=== PATIENT | female | born 1945 | race Caucasian/White ===

== ENCOUNTER 2020-11-22 12:14 | Inpatient (IN) ==
[2020-11-22] MEDS ORDERED: SODIUM CHLORIDE 0.9% 500 ML IV STA (12:46)
[2020-11-22] MEDS ORDERED: NITROGLYCERIN 2% OINT 1 INCH/GM PACK TOP STA (12:46)
[2020-11-22] MEDS ORDERED: DILTIAZEM 100 MG VIAL.ADD IV ONE (12:49)
[2020-11-22] MEDS ORDERED: DILTIAZEM 50 MG/10 ML VIAL IV ONE (12:49)
[2020-11-22 12:59] LABS: Basophils % 0.1 % (0.0-0.8); Eosinophils % 0.3 % (0.00-10.9); Hematocrit 46.5 VOL% (35.7-47.0); Hemoglobin 15.1 GM/DL (12.0-16.0); Immature Granulocytes % 0.6 %; Immature Granulocytes Absolute 0.06 #; Lymphocytes # 1.5 10*3/uL (1.4-4.0); Lymphocytes % 14.5 % (21.3-54.2); Mean Corpuscular HGB Conc 32.5 GM/DL (32-36); Mean Corpuscular Volume 93.8 FL (87-102); Mean Platelet Volume 12.1 FL (9.6-12.0); Monocytes % 6.7 % (1.7-12.7); Neutrophils % 77.8 % (38.7-73.9); Platelet Count 282 T/CUMM (130-400); Red Blood Count 4.96 MC/CUMM (3.8-5.5); Red Cell Distribution Width 13.4 % (9.3-17.3); White Blood Count 10.5 T/CUMM (4-12)
[2020-11-22] MEDS: DILTIAZEM INJ 100 MG in SODIUM CHLORIDE 0.9% 100 ML IV SCH ×2 (13:10→23:01)
[2020-11-22 13:25] LABS: Albumin 2.7 G/DL (3.4-5.0); Bilirubin,Total 1.2 MG/DL (0.20-1.00); Calcium 8.2 MG/DL (8.5-10.1); Osmolality,Calculated 285.4 MOS/KG (273-304); Potassium 4.4 MMOL/L (3.5-5.1); Total Protein 6.9 G/DL (6.4-8.2)
[2020-11-22] MEDS ORDERED: DILTIAZEM 50 MG/10 ML VIAL IV STA ×2 (13:55→13:56)
[2020-11-22] MEDS ORDERED: METOPROLOL SUCCINATE XL 25 MG TABLET PO STA (14:55)
[2020-11-22] MEDS ORDERED: ONDANSETRON 4 MG/2 ML VIAL IV PRN (15:11)
[2020-11-22] MEDS ORDERED: DEXTROSE 50% 25 GM/50 ML VIAL IV PRN ×2 (15:11)
[2020-11-22] MEDS ORDERED: GLUCAGON 1 MG VIAL IM PRN ×2 (15:11)
[2020-11-22] MEDS ORDERED: ASCORBIC ACID 500 MG TABLET PO SCH (15:30)
[2020-11-22] MEDS: INSULIN LISPRO 100 UNIT/ML SUBCUT SCH ×2 (17:04→20:40)
[2020-11-22] MEDS: PANTOPRAZOLE 40 MG TABLET PO SCH (17:26)
[2020-11-22] MEDS: ZINC GLUCONATE 50 MG TABLET PO SCH (17:26)
[2020-11-22] MEDS: cefTRIAXone 1,000 MG in SODIUM CHLORIDE 0.9% 100 ML IV SCH (17:27)
[2020-11-22 17:47] LABS: Ferritin 445.7 ng/ml (8-252)
[2020-11-22] MEDS: DOXYCYCLINE HYCLATE INJ 100 MG in SODIUM CHLORIDE 0.9% 100 ML IV SCH (20:21)
[2020-11-22] MEDS: APIXABAN 5 MG TABLET PO SCH (20:22)
[2020-11-22] MEDS: ASCORBIC ACID 500 MG TABLET PO SCH (20:22)
[2020-11-22] MEDS: MIRTAZAPINE 15 MG TABLET PO SCH (20:23)
[2020-11-22] MEDS: CITALOPRAM 20 MG TABLET PO SCH (20:23)
[2020-11-22] MEDS: GABAPENTIN 300 MG CAPSULE PO SCH (20:23)
[2020-11-22] MEDS ORDERED: CALCIUM CARBONATE CHEW 500 MG TABLET PO SCH (21:00)
[2020-11-22] MEDS: REMDESIVIR 100 MG in SODIUM CHLORIDE 0.9% 100 ML IV SCH (21:30)
[2020-11-23] MEDS: DOXYCYCLINE HYCLATE INJ 100 MG in SODIUM CHLORIDE 0.9% 100 ML IV SCH ×2 (05:38→17:33)
[2020-11-23 05:59] LABS: Basophils % 0.1 % (0.0-0.8); Eosinophils # 0.2 10*3/uL (0.0-0.87); Hematocrit 42.5 VOL% (35.7-47.0); Hemoglobin 13.9 GM/DL (12.0-16.0); Immature Granulocytes % 0.5 %; Immature Granulocytes Absolute 0.05 #; Lymphocytes # 1.6 10*3/uL (1.4-4.0); Lymphocytes % 16.9 % (21.3-54.2); Mean Corpuscular HGB Conc 32.7 GM/DL (32-36); Mean Corpuscular Volume 93.8 FL (87-102); Mean Platelet Volume 11.9 FL (9.6-12.0); Monocytes % 7.8 % (1.7-12.7); Neutrophils % 72.7 % (38.7-73.9); Platelet Count 243 T/CUMM (130-400); Red Blood Count 4.53 MC/CUMM (3.8-5.5); Red Cell Distribution Width 13.7 % (9.3-17.3); White Blood Count 9.4 T/CUMM (4-12)
[2020-11-23 06:30] LABS: Ferritin 504.3 ng/ml (8-252)
[2020-11-23 06:42] LABS: Calcium 8.1 MG/DL (8.5-10.1); Osmolality,Calculated 290.8 MOS/KG (273-304); Thyroid Stimulating Hormone 1.72 uIU/ml (0.358-3.74)
[2020-11-23] MEDS ORDERED: POTASSIUM CHLORIDE 20 MEQ TABLET PO ONE (07:42)
[2020-11-23] MEDS: INSULIN LISPRO 100 UNIT/ML SUBCUT SCH ×4 (08:16→22:16)
[2020-11-23] MEDS: DEXAMETHASONE 4 MG/1 ML VIAL IV SCH (08:17)
[2020-11-23] MEDS: GABAPENTIN 300 MG CAPSULE PO SCH ×3 (08:18→22:14)
[2020-11-23] MEDS: ZINC GLUCONATE 50 MG TABLET PO SCH (08:18)
[2020-11-23] MEDS: CALCIUM (CARBONATE) 500 MG TABLET PO SCH (08:18)
[2020-11-23] MEDS: APIXABAN 5 MG TABLET PO SCH ×2 (08:18→22:13)
[2020-11-23] MEDS: ASCORBIC ACID 500 MG TABLET PO SCH ×2 (08:19→22:13)
[2020-11-23] MEDS: CHOLECALCIFEROL 1,000 UNIT TABLET PO SCH (08:19)
[2020-11-23] MEDS: PANTOPRAZOLE 40 MG TABLET PO SCH (08:19)
[2020-11-23] MEDS: INSULIN GLARGINE 100 UNIT/ML SUBCUT SCH (08:23)
[2020-11-23] MEDS ORDERED: NON-FORMULARY MEDICATION (Insulin Glargine [Basaglar Kwikpen U-100 Insulin] 100 unit/mL (3 SUBCUT SCH (09:00)
[2020-11-23] MEDS ORDERED: METOPROLOL SUCCINATE XL 25 MG TABLET PO ONE (09:16)
[2020-11-23] MEDS: REMDESIVIR 100 MG in SODIUM CHLORIDE 0.9% 100 ML IV SCH (10:37)
[2020-11-23] MEDS: DILTIAZEM INJ 100 MG in SODIUM CHLORIDE 0.9% 100 ML IV SCH ×2 (13:00→20:22)
[2020-11-23] MEDS: DILTIAZEM 30 MG TABLET PO SCH ×2 (16:34→22:12)
[2020-11-23] MEDS: cefTRIAXone 1,000 MG in SODIUM CHLORIDE 0.9% 100 ML IV SCH (16:34)
[2020-11-23] MEDS ORDERED: SODIUM CHLORIDE 0.45% 1,000 ML IV SCH (17:00)
[2020-11-23] MEDS ORDERED: METOPROLOL TARTRATE 50 MG TABLET PO ONE (18:34)
[2020-11-23] MEDS ORDERED: DIGOXIN 0.5 MG/2 ML AMP IV ONE (18:35)
[2020-11-23 20:58] LABS: Osmolality,Calculated 292.1 MOS/KG (273-304); Potassium 3.6 MMOL/L (3.5-5.1)
[2020-11-23] MEDS: MIRTAZAPINE 15 MG TABLET PO SCH (22:12)
[2020-11-23] MEDS: METOPROLOL SUCCINATE XL 50 MG TABLET PO SCH (22:14)
[2020-11-23] MEDS: CITALOPRAM 20 MG TABLET PO SCH (22:14)
[2020-11-24] MEDS: POTASSIUM CHLORIDE 20 MEQ TABLET PO PRN (00:48)
[2020-11-24 05:50] LABS: Basophils % 0.1 % (0.0-0.8); Hematocrit 40.9 VOL% (35.7-47.0); Hemoglobin 13.2 GM/DL (12.0-16.0); Immature Granulocytes % 0.8 %; Immature Granulocytes Absolute 0.09 #; Mean Corpuscular HGB Conc 32.3 GM/DL (32-36); Mean Corpuscular Volume 95.1 FL (87-102); Mean Platelet Volume 12.3 FL (9.6-12.0); Monocytes % 4.8 % (1.7-12.7); Neutrophils % 85.3 % (38.7-73.9); Platelet Count 268 T/CUMM (130-400); Red Cell Distribution Width 13.7 % (9.3-17.3); White Blood Count 11.4 T/CUMM (4-12)
[2020-11-24 06:16] LABS: Calcium 8.2 MG/DL (8.5-10.1); Osmolality,Calculated 294.6 MOS/KG (273-304); Potassium 4.1 MMOL/L (3.5-5.1)
[2020-11-24 06:25] LABS: Risk Ratio 2.53; VLDL Cholesterol 12.4 MG/DL
[2020-11-24] MEDS: DOXYCYCLINE HYCLATE INJ 100 MG in SODIUM CHLORIDE 0.9% 100 ML IV SCH (06:37)
[2020-11-24] MEDS ORDERED: CLORAZEPATE 3.75 MG TABLET PO PRN (08:46)
[2020-11-24] MEDS ORDERED: DIGOXIN 0.5 MG/2 ML AMP IV SCH (09:00)
[2020-11-24] MEDS: DILTIAZEM 30 MG TABLET PO SCH (09:15)
[2020-11-24] MEDS: ZINC GLUCONATE 50 MG TABLET PO SCH (09:16)
[2020-11-24] MEDS: ASCORBIC ACID 500 MG TABLET PO SCH ×2 (09:16→21:48)
[2020-11-24] MEDS: APIXABAN 5 MG TABLET PO SCH ×2 (09:16→21:40)
[2020-11-24] MEDS: PANTOPRAZOLE 40 MG TABLET PO SCH (09:16)
[2020-11-24] MEDS: CHOLECALCIFEROL 1,000 UNIT TABLET PO SCH (09:16)
[2020-11-24] MEDS: CALCIUM (CARBONATE) 500 MG TABLET PO SCH (09:16)
[2020-11-24] MEDS: INSULIN LISPRO 100 UNIT/ML SUBCUT SCH ×4 (09:17→21:47)
[2020-11-24] MEDS: GABAPENTIN 300 MG CAPSULE PO SCH ×3 (09:17→21:47)
[2020-11-24] MEDS: DEXAMETHASONE 4 MG/1 ML VIAL IV SCH (09:17)
[2020-11-24] MEDS: SODIUM CHLORIDE 0.45% 1,000 ML IV SCH ×2 (09:19→17:04)
[2020-11-24] MEDS: REMDESIVIR 100 MG in SODIUM CHLORIDE 0.9% 100 ML IV SCH (09:19)
[2020-11-24] MEDS: METOPROLOL SUCCINATE XL 50 MG TABLET PO SCH ×2 (09:23→21:48)
[2020-11-24] MEDS: ASPIRIN EC 81 MG TABLET PO SCH (09:29)
[2020-11-24] MEDS: INSULIN GLARGINE 100 UNIT/ML SUBCUT SCH (09:31)
[2020-11-24] MEDS ORDERED: DILTIAZEM 30 MG TABLET PO ONE (09:55)
[2020-11-24] MEDS: DILTIAZEM 60 MG TABLET PO SCH ×3 (13:41→21:40)
[2020-11-24] MEDS: cefTRIAXone 1,000 MG in SODIUM CHLORIDE 0.9% 100 ML IV SCH (16:02)
[2020-11-24] MEDS: CITALOPRAM 20 MG TABLET PO SCH (21:40)
[2020-11-24] MEDS: DOXYCYCLINE HYCLATE 100 MG CAPSULE PO SCH (21:48)
[2020-11-24] MEDS: MIRTAZAPINE 15 MG TABLET PO SCH (21:48)
[2020-11-25] MEDS: SODIUM CHLORIDE 0.45% 1,000 ML IV SCH ×2 (02:34→06:07)
[2020-11-25] MEDS ORDERED: FUROSEMIDE 40 MG/4 ML VIAL IV ONE (07:40)
[2020-11-25] MEDS: DEXAMETHASONE 4 MG/1 ML VIAL IV SCH (09:14)
[2020-11-25] MEDS: cefTRIAXone 1,000 MG in SODIUM CHLORIDE 0.9% 100 ML IV SCH (09:14)
[2020-11-25] MEDS: DILTIAZEM 30 MG TABLET PO SCH ×3 (09:15→20:52)
[2020-11-25] MEDS: ASCORBIC ACID 500 MG TABLET PO SCH ×2 (09:15→20:52)
[2020-11-25] MEDS: INSULIN GLARGINE 100 UNIT/ML SUBCUT SCH (09:15)
[2020-11-25] MEDS: ASPIRIN EC 81 MG TABLET PO SCH (09:15)
[2020-11-25] MEDS: DOXYCYCLINE HYCLATE 100 MG CAPSULE PO SCH ×2 (09:15→20:52)
[2020-11-25] MEDS: ZINC GLUCONATE 50 MG TABLET PO SCH (09:15)
[2020-11-25] MEDS: APIXABAN 5 MG TABLET PO SCH ×2 (09:15→20:52)
[2020-11-25] MEDS: PANTOPRAZOLE 40 MG TABLET PO SCH (09:15)
[2020-11-25] MEDS: METOPROLOL SUCCINATE XL 50 MG TABLET PO SCH ×2 (09:16→20:52)
[2020-11-25] MEDS: CALCIUM (CARBONATE) 500 MG TABLET PO SCH (09:16)
[2020-11-25] MEDS: GABAPENTIN 300 MG CAPSULE PO SCH ×3 (09:16→20:52)
[2020-11-25] MEDS: CHOLECALCIFEROL 1,000 UNIT TABLET PO SCH (09:16)
[2020-11-25] MEDS: INSULIN LISPRO 100 UNIT/ML SUBCUT SCH ×4 (09:30→20:52)
[2020-11-25] MEDS: REMDESIVIR 100 MG in SODIUM CHLORIDE 0.9% 100 ML IV SCH (10:05)
[2020-11-25] MEDS: CITALOPRAM 20 MG TABLET PO SCH (20:52)
[2020-11-25] MEDS: MIRTAZAPINE 15 MG TABLET PO SCH (20:52)
[2020-11-26] MEDS: ASCORBIC ACID 500 MG TABLET PO SCH ×2 (09:43→21:58)
[2020-11-26] MEDS: ZINC GLUCONATE 50 MG TABLET PO SCH (09:43)
[2020-11-26] MEDS: DOXYCYCLINE HYCLATE 100 MG CAPSULE PO SCH ×2 (09:44→21:58)
[2020-11-26] MEDS: CHOLECALCIFEROL 1,000 UNIT TABLET PO SCH (09:44)
[2020-11-26] MEDS: METOPROLOL SUCCINATE XL 50 MG TABLET PO SCH (09:44)
[2020-11-26] MEDS: ASPIRIN EC 81 MG TABLET PO SCH (09:44)
[2020-11-26] MEDS: GABAPENTIN 300 MG CAPSULE PO SCH ×3 (09:44→21:58)
[2020-11-26] MEDS: DILTIAZEM 30 MG TABLET PO SCH (09:44)
[2020-11-26] MEDS: PANTOPRAZOLE 40 MG TABLET PO SCH (09:53)
[2020-11-26] MEDS: APIXABAN 5 MG TABLET PO SCH ×2 (09:53→21:59)
[2020-11-26] MEDS: CALCIUM (CARBONATE) 500 MG TABLET PO SCH (09:53)
[2020-11-26] MEDS: INSULIN LISPRO 100 UNIT/ML SUBCUT SCH ×4 (09:53→21:59)
[2020-11-26] MEDS: INSULIN GLARGINE 100 UNIT/ML SUBCUT SCH (09:54)
[2020-11-26] MEDS: cefTRIAXone 1,000 MG in SODIUM CHLORIDE 0.9% 100 ML IV SCH (10:12)
[2020-11-26] MEDS: DEXAMETHASONE 4 MG/1 ML VIAL IV SCH (10:13)
[2020-11-26 10:59] LABS: Calcium 8.2 MG/DL (8.5-10.1); Osmolality,Calculated 292.4 MOS/KG (273-304); Potassium 3.2 MMOL/L (3.5-5.1)
[2020-11-26] MEDS: REMDESIVIR 100 MG in SODIUM CHLORIDE 0.9% 100 ML IV SCH (11:49)
[2020-11-26] MEDS ORDERED: FUROSEMIDE 40 MG/4 ML VIAL IV ONE (14:20)
[2020-11-26] MEDS: CITALOPRAM 20 MG TABLET PO SCH (21:58)
[2020-11-26] MEDS: MIRTAZAPINE 15 MG TABLET PO SCH (21:58)
[2020-11-26] MEDS: METOPROLOL SUCCINATE XL 25 MG TABLET PO SCH (21:58)
[2020-11-27 05:49] LABS: Basophils % 0.2 % (0.0-0.8); Hematocrit 45.3 VOL% (35.7-47.0); Hemoglobin 14.9 GM/DL (12.0-16.0); Immature Granulocytes % 0.9 %; Immature Granulocytes Absolute 0.12 #; Lymphocytes # 1.9 10*3/uL (1.4-4.0); Lymphocytes % 14.4 % (21.3-54.2); Mean Corpuscular HGB Conc 32.9 GM/DL (32-36); Mean Corpuscular Volume 94.4 FL (87-102); Mean Platelet Volume 12.5 FL (9.6-12.0); Neutrophils % 75.5 % (38.7-73.9); Platelet Count 356 T/CUMM (130-400); Red Cell Distribution Width 13.7 % (9.3-17.3); White Blood Count 13.2 T/CUMM (4-12)
[2020-11-27 06:09] LABS: Platelet Estimate Adequate
[2020-11-27 06:13] LABS: Calcium 8.2 MG/DL (8.5-10.1); Osmolality,Calculated 296.8 MOS/KG (273-304); Potassium 3.4 MMOL/L (3.5-5.1)
[2020-11-27] MEDS: INSULIN LISPRO 100 UNIT/ML SUBCUT SCH ×4 (07:22→22:24)
[2020-11-27] MEDS: CALCIUM (CARBONATE) 500 MG TABLET PO SCH (09:45)
[2020-11-27] MEDS: LOSARTAN 25 MG TABLET PO SCH (09:45)
[2020-11-27] MEDS: ZINC GLUCONATE 50 MG TABLET PO SCH (09:45)
[2020-11-27] MEDS: ASCORBIC ACID 500 MG TABLET PO SCH ×2 (09:45→21:15)
[2020-11-27] MEDS: CHOLECALCIFEROL 1,000 UNIT TABLET PO SCH (09:45)
[2020-11-27] MEDS: DOXYCYCLINE HYCLATE 100 MG CAPSULE PO SCH ×2 (09:45→21:15)
[2020-11-27] MEDS: ASPIRIN EC 81 MG TABLET PO SCH (09:45)
[2020-11-27] MEDS: METOPROLOL SUCCINATE XL 25 MG TABLET PO SCH ×2 (09:45→21:15)
[2020-11-27] MEDS: GABAPENTIN 300 MG CAPSULE PO SCH ×3 (09:45→21:15)
[2020-11-27] MEDS: APIXABAN 5 MG TABLET PO SCH ×2 (09:46→21:15)
[2020-11-27] MEDS: DEXAMETHASONE 4 MG/1 ML VIAL IV SCH (09:46)
[2020-11-27] MEDS: cefTRIAXone 1,000 MG in SODIUM CHLORIDE 0.9% 100 ML IV SCH (09:46)
[2020-11-27] MEDS: PANTOPRAZOLE 40 MG TABLET PO SCH (09:46)
[2020-11-27] MEDS: INSULIN GLARGINE 100 UNIT/ML SUBCUT SCH (09:46)
[2020-11-27] MEDS: CITALOPRAM 20 MG TABLET PO SCH (21:15)
[2020-11-27] MEDS: MIRTAZAPINE 15 MG TABLET PO SCH (21:15)
[2020-11-28] MEDS ORDERED: POTASSIUM CHLORIDE 20 MEQ TABLET PO ONE (09:00)
[2020-11-28] MEDS: cefTRIAXone 1,000 MG in SODIUM CHLORIDE 0.9% 100 ML IV SCH (09:01)
[2020-11-28] MEDS: CALCIUM (CARBONATE) 500 MG TABLET PO SCH (09:02)
[2020-11-28] MEDS: ASCORBIC ACID 500 MG TABLET PO SCH ×2 (09:03→20:46)
[2020-11-28] MEDS: APIXABAN 5 MG TABLET PO SCH ×2 (09:03→20:40)
[2020-11-28] MEDS: LOSARTAN 25 MG TABLET PO SCH (09:03)
[2020-11-28] MEDS: ZINC GLUCONATE 50 MG TABLET PO SCH (09:03)
[2020-11-28] MEDS: METOPROLOL SUCCINATE XL 25 MG TABLET PO SCH ×2 (09:04→20:40)
[2020-11-28] MEDS: GABAPENTIN 300 MG CAPSULE PO SCH ×3 (09:04→20:40)
[2020-11-28] MEDS: LORATADINE 10 MG TABLET PO PRN (09:04)
[2020-11-28] MEDS: CHOLECALCIFEROL 1,000 UNIT TABLET PO SCH (09:04)
[2020-11-28] MEDS: ASPIRIN EC 81 MG TABLET PO SCH (09:04)
[2020-11-28] MEDS: PANTOPRAZOLE 40 MG TABLET PO SCH (09:04)
[2020-11-28] MEDS: DOXYCYCLINE HYCLATE 100 MG CAPSULE PO SCH ×2 (09:04→20:46)
[2020-11-28] MEDS: DEXAMETHASONE 4 MG/1 ML VIAL IV SCH (09:05)
[2020-11-28] MEDS: INSULIN GLARGINE 100 UNIT/ML SUBCUT SCH (09:05)
[2020-11-28] MEDS: INSULIN LISPRO 100 UNIT/ML SUBCUT SCH ×4 (09:06→21:23)
[2020-11-28] MEDS ORDERED: DIGOXIN 0.5 MG/2 ML AMP IV ONE (17:41)
[2020-11-28] MEDS ORDERED: AMIODARONE INJ 150 MG in DEXTROSE 5% 100 ML IV ONE ×2 (18:09→18:30)
[2020-11-28] MEDS: MIRTAZAPINE 15 MG TABLET PO SCH (20:40)
[2020-11-28] MEDS ORDERED: AMIODARONE 200 MG TABLET PO SCH (21:00)
[2020-11-29 04:27] LABS: Basophils % 0.2 % (0.0-0.8); Hematocrit 44.8 VOL% (35.7-47.0); Hemoglobin 14.6 GM/DL (12.0-16.0); Immature Granulocytes % 0.8 %; Immature Granulocytes Absolute 0.11 #; Lymphocytes # 1.7 10*3/uL (1.4-4.0); Lymphocytes % 11.4 % (21.3-54.2); Mean Corpuscular HGB Conc 32.6 GM/DL (32-36); Mean Corpuscular Volume 96.3 FL (87-102); Mean Platelet Volume 12.4 FL (9.6-12.0); Monocytes % 7.7 % (1.7-12.7); Neutrophils % 79.9 % (38.7-73.9); Platelet Count 300 T/CUMM (130-400); Red Blood Count 4.65 MC/CUMM (3.8-5.5); Red Cell Distribution Width 13.9 % (9.3-17.3); White Blood Count 14.7 T/CUMM (4-12)
[2020-11-29 05:12] LABS: Blood Urea Nitrogen 31 MG/DL (7-18); Calcium 7.9 MG/DL (8.5-10.1); Carbon Dioxide 21 MMOL/L (21-32); Estimated Glom Filtration Rate 78 ML/MIN; Ferritin 326.3 ng/mL (8-252); Glucose 98 MG/DL (74-106); Osmolality,Calculated 289.1 MOS/KG (273-304); Potassium 3.9 MMOL/L (3.5-5.1); Sodium 142 MMOL/L (136-145)
[2020-11-29] MEDS: INSULIN LISPRO 100 UNIT/ML SUBCUT SCH ×4 (10:09→21:20)
[2020-11-29] MEDS: DEXAMETHASONE 4 MG/1 ML VIAL IV SCH (10:09)
[2020-11-29] MEDS: ASCORBIC ACID 500 MG TABLET PO SCH ×2 (10:10→21:20)
[2020-11-29] MEDS: AMIODARONE 200 MG TABLET PO SCH (10:10)
[2020-11-29] MEDS: LORATADINE 10 MG TABLET PO PRN (10:10)
[2020-11-29] MEDS: PANTOPRAZOLE 40 MG TABLET PO SCH (10:10)
[2020-11-29] MEDS: CALCIUM (CARBONATE) 500 MG TABLET PO SCH (10:10)
[2020-11-29] MEDS: ZINC GLUCONATE 50 MG TABLET PO SCH (10:10)
[2020-11-29] MEDS: ASPIRIN EC 81 MG TABLET PO SCH (10:10)
[2020-11-29] MEDS: DOXYCYCLINE HYCLATE 100 MG CAPSULE PO SCH ×2 (10:11→21:20)
[2020-11-29] MEDS: CHOLECALCIFEROL 1,000 UNIT TABLET PO SCH (10:11)
[2020-11-29] MEDS: METOPROLOL SUCCINATE XL 25 MG TABLET PO SCH ×2 (10:54→21:20)
[2020-11-29] MEDS: INSULIN GLARGINE 100 UNIT/ML SUBCUT SCH (11:10)
[2020-11-29] MEDS: APIXABAN 5 MG TABLET PO SCH ×2 (11:10→21:20)
[2020-11-29] MEDS: GABAPENTIN 300 MG CAPSULE PO SCH ×3 (11:10→21:20)
[2020-11-29] MEDS ORDERED: CALCIUM CARBONATE CHEW 500 MG TABLET PO PRN (12:03)
[2020-11-29] MEDS: MIRTAZAPINE 15 MG TABLET PO SCH (21:20)
[2020-11-30 05:41] LABS: Basophils % 0.2 % (0.0-0.8); Eosinophils # 0.1 10*3/uL (0.0-0.87); Eosinophils % 0.7 % (0.00-10.9); Hematocrit 48.9 VOL% (35.7-47.0); Hemoglobin 15.6 GM/DL (12.0-16.0); Immature Granulocytes % 0.6 %; Immature Granulocytes Absolute 0.09 #; Lymphocytes # 3.1 10*3/uL (1.4-4.0); Lymphocytes % 19.4 % (21.3-54.2); Mean Corpuscular HGB Conc 31.9 GM/DL (32-36); Mean Corpuscular Volume 97.6 FL (87-102); Mean Platelet Volume 12.2 FL (9.6-12.0); Monocytes % 9.4 % (1.7-12.7); Neutrophils % 69.7 % (38.7-73.9); Platelet Count 298 T/CUMM (130-400); Red Blood Count 5.01 MC/CUMM (3.8-5.5); Red Cell Distribution Width 14.1 % (9.3-17.3); White Blood Count 16.1 T/CUMM (4-12)
[2020-11-30 06:17] LABS: Blood Urea Nitrogen 28 MG/DL (7-18); Calcium 8.1 MG/DL (8.5-10.1); Carbon Dioxide 22 MMOL/L (21-32); Estimated Glom Filtration Rate 67 ML/MIN; Ferritin 367.3 ng/mL (8-252); Glucose 80 MG/DL (74-106); Osmolality,Calculated 287.1 MOS/KG (273-304); Potassium 3.4 MMOL/L (3.5-5.1); Sodium 142 MMOL/L (136-145)
[2020-11-30] MEDS: INSULIN LISPRO 100 UNIT/ML SUBCUT SCH ×4 (08:37→22:50)
[2020-11-30] MEDS: POTASSIUM CHLORIDE 20 MEQ TABLET PO PRN ×3 (10:46→15:10)
[2020-11-30] MEDS: ZINC GLUCONATE 50 MG TABLET PO SCH (10:46)
[2020-11-30] MEDS: CHOLECALCIFEROL 1,000 UNIT TABLET PO SCH (10:46)
[2020-11-30] MEDS: PANTOPRAZOLE 40 MG TABLET PO SCH (10:47)
[2020-11-30] MEDS: APIXABAN 5 MG TABLET PO SCH ×2 (10:47→21:07)
[2020-11-30] MEDS: METOPROLOL SUCCINATE XL 25 MG TABLET PO SCH ×2 (10:47→21:07)
[2020-11-30] MEDS: GABAPENTIN 300 MG CAPSULE PO SCH ×3 (10:47→21:07)
[2020-11-30] MEDS: DOXYCYCLINE HYCLATE 100 MG CAPSULE PO SCH ×2 (10:47→21:08)
[2020-11-30] MEDS: CALCIUM (CARBONATE) 500 MG TABLET PO SCH (10:47)
[2020-11-30] MEDS: ASCORBIC ACID 500 MG TABLET PO SCH ×2 (10:48→21:07)
[2020-11-30] MEDS: INSULIN GLARGINE 100 UNIT/ML SUBCUT SCH (10:49)
[2020-11-30] MEDS: ASPIRIN EC 81 MG TABLET PO SCH (10:49)
[2020-11-30] MEDS: AMIODARONE 200 MG TABLET PO SCH (10:49)
[2020-11-30] MEDS: DEXAMETHASONE 4 MG/1 ML VIAL IV SCH (11:00)
[2020-11-30] MEDS: MIRTAZAPINE 15 MG TABLET PO SCH (21:08)
[2020-12-01 05:34] LABS: Basophils % 0.1 % (0.0-0.8); Eosinophils % 0.2 % (0.00-10.9); Hemoglobin 14.5 GM/DL (12.0-16.0); Immature Granulocytes % 0.5 %; Immature Granulocytes Absolute 0.07 #; Lymphocytes # 1.8 10*3/uL (1.4-4.0); Lymphocytes % 13.8 % (21.3-54.2); Mean Corpuscular HGB Conc 32.2 GM/DL (32-36); Mean Corpuscular Volume 97.2 FL (87-102); Monocytes % 5.8 % (1.7-12.7); Neutrophils % 79.6 % (38.7-73.9); Platelet Count 270 T/CUMM (130-400); Red Blood Count 4.63 MC/CUMM (3.8-5.5); Red Cell Distribution Width 14.3 % (9.3-17.3); White Blood Count 13.3 T/CUMM (4-12)
[2020-12-01 06:10] LABS: Osmolality,Calculated 286.5 MOS/KG (273-304)
[2020-12-01 06:13] LABS: Potassium 6.7 MMOL/L (3.5-5.1)
[2020-12-01] MEDS ORDERED: SODIUM POLYSTYRENE SULFATE 15 GM/60 ML BOTTLE PO STA (06:17)
[2020-12-01] MEDS ORDERED: DEXTROSE 50% 25 GM/50 ML VIAL IV ONE (06:50)
[2020-12-01] MEDS ORDERED: INSULIN REGULAR 100 UNIT/ML IV ONE (06:50)
[2020-12-01] MEDS ORDERED: CALCIUM GLUCONATE 1,000 MG in SODIUM CHLORIDE 0.9% 100 ML IV ONE (06:51)
[2020-12-01] MEDS ORDERED: SODIUM BICARBONATE 50 MEQ/50 ML VIAL IV ONE (06:53)
[2020-12-01] MEDS: ASPIRIN EC 81 MG TABLET PO SCH (08:02)
[2020-12-01] MEDS: ZINC GLUCONATE 50 MG TABLET PO SCH (08:02)
[2020-12-01] MEDS: CHOLECALCIFEROL 1,000 UNIT TABLET PO SCH (08:02)
[2020-12-01] MEDS: PANTOPRAZOLE 40 MG TABLET PO SCH (08:02)
[2020-12-01] MEDS: ASCORBIC ACID 500 MG TABLET PO SCH ×2 (08:02→21:05)
[2020-12-01] MEDS: DOXYCYCLINE HYCLATE 100 MG CAPSULE PO SCH ×2 (08:02→21:05)
[2020-12-01] MEDS: AMIODARONE 200 MG TABLET PO SCH (08:03)
[2020-12-01] MEDS: METOPROLOL SUCCINATE XL 25 MG TABLET PO SCH ×2 (08:03→20:31)
[2020-12-01] MEDS: GABAPENTIN 300 MG CAPSULE PO SCH ×3 (08:03→21:06)
[2020-12-01] MEDS: APIXABAN 5 MG TABLET PO SCH ×2 (08:03→21:06)
[2020-12-01] MEDS: INSULIN GLARGINE 100 UNIT/ML SUBCUT SCH (08:04)
[2020-12-01] MEDS: CALCIUM (CARBONATE) 500 MG TABLET PO SCH (09:36)
[2020-12-01] MEDS: DEXAMETHASONE 4 MG TABLET PO SCH (10:41)
[2020-12-01] MEDS: INSULIN LISPRO 100 UNIT/ML SUBCUT SCH ×4 (12:27→21:05)
[2020-12-01 12:42] LABS: Potassium 3.5 MMOL/L (3.5-5.1)
[2020-12-01] MEDS: MIRTAZAPINE 15 MG TABLET PO SCH (21:05)
[2020-12-02 06:04] LABS: Basophils % 0.1 % (0.0-0.8); Eosinophils % 0.1 % (0.00-10.9); Hematocrit 41.3 VOL% (35.7-47.0); Hemoglobin 13.1 GM/DL (12.0-16.0); Immature Granulocytes % 0.5 %; Immature Granulocytes Absolute 0.06 #; Lymphocytes # 2.2 10*3/uL (1.4-4.0); Lymphocytes % 18.3 % (21.3-54.2); Mean Corpuscular HGB Conc 31.7 GM/DL (32-36); Mean Corpuscular Volume 96.7 FL (87-102); Mean Platelet Volume 12.7 FL (9.6-12.0); Monocytes % 6.9 % (1.7-12.7); Neutrophils % 74.1 % (38.7-73.9); Platelet Count 237 T/CUMM (130-400); Red Blood Count 4.27 MC/CUMM (3.8-5.5); Red Cell Distribution Width 14.2 % (9.3-17.3); White Blood Count 12.2 T/CUMM (4-12)
[2020-12-02 06:30] LABS: Calcium 8.1 MG/DL (8.5-10.1); Ferritin 294.1 ng/mL (8-252); Osmolality,Calculated 289.8 MOS/KG (273-304); Potassium 3.4 MMOL/L (3.5-5.1)
[2020-12-02] MEDS: METOPROLOL SUCCINATE XL 25 MG TABLET PO SCH ×2 (08:02→21:10)
[2020-12-02] MEDS: GABAPENTIN 300 MG CAPSULE PO SCH ×3 (08:02→21:10)
[2020-12-02] MEDS: CALCIUM (CARBONATE) 500 MG TABLET PO SCH (08:02)
[2020-12-02] MEDS: ASPIRIN EC 81 MG TABLET PO SCH (08:02)
[2020-12-02] MEDS: AMIODARONE 200 MG TABLET PO SCH (08:03)
[2020-12-02] MEDS: PANTOPRAZOLE 40 MG TABLET PO SCH (08:03)
[2020-12-02] MEDS: ASCORBIC ACID 500 MG TABLET PO SCH ×2 (08:03→21:21)
[2020-12-02] MEDS: CHOLECALCIFEROL 1,000 UNIT TABLET PO SCH (08:03)
[2020-12-02] MEDS: ZINC GLUCONATE 50 MG TABLET PO SCH (08:04)
[2020-12-02] MEDS: APIXABAN 5 MG TABLET PO SCH ×2 (08:04→21:21)
[2020-12-02] MEDS: INSULIN LISPRO 100 UNIT/ML SUBCUT SCH ×4 (08:26→21:30)
[2020-12-02] MEDS: DEXAMETHASONE 4 MG TABLET PO SCH (10:21)
[2020-12-02] MEDS: INSULIN GLARGINE 100 UNIT/ML SUBCUT SCH (10:23)
[2020-12-02] MEDS: MIRTAZAPINE 15 MG TABLET PO SCH (21:10)
[2020-12-03 05:45] LABS: Basophils % 0.1 % (0.0-0.8); Eosinophils # 0.1 10*3/uL (0.0-0.87); Eosinophils % 1.1 % (0.00-10.9); Hematocrit 41.4 VOL% (35.7-47.0); Hemoglobin 13.2 GM/DL (12.0-16.0); Immature Granulocytes % 0.3 %; Immature Granulocytes Absolute 0.03 #; Lymphocytes # 3.7 10*3/uL (1.4-4.0); Mean Corpuscular HGB Conc 31.9 GM/DL (32-36); Mean Corpuscular Volume 97.9 FL (87-102); Mean Platelet Volume 12.7 FL (9.6-12.0); Monocytes % 7.6 % (1.7-12.7); Neutrophils % 56.9 % (38.7-73.9); Platelet Count 183 T/CUMM (130-400); Red Blood Count 4.23 MC/CUMM (3.8-5.5); Red Cell Distribution Width 14.3 % (9.3-17.3); White Blood Count 10.8 T/CUMM (4-12)
[2020-12-03 06:20] LABS: Blood Urea Nitrogen 30 MG/DL (7-18); Calcium 7.8 MG/DL (8.5-10.1); Carbon Dioxide 25 MMOL/L (21-32); Estimated Glom Filtration Rate 59 ML/MIN; Ferritin 271.2 ng/mL (8-252); Glucose 85 MG/DL (74-106); Osmolality,Calculated 292.7 MOS/KG (273-304); Potassium 3.4 MMOL/L (3.5-5.1); Sodium 145 MMOL/L (136-145)
[2020-12-03] MEDS: INSULIN LISPRO 100 UNIT/ML SUBCUT SCH (09:02)
[2020-12-03] MEDS: ASPIRIN EC 81 MG TABLET PO SCH (09:04)
[2020-12-03] MEDS: AMIODARONE 200 MG TABLET PO SCH (09:04)
[2020-12-03] MEDS: DEXAMETHASONE 4 MG TABLET PO SCH (09:05)
[2020-12-03] MEDS: PANTOPRAZOLE 40 MG TABLET PO SCH (09:07)
[2020-12-03] MEDS: GABAPENTIN 300 MG CAPSULE PO SCH (09:07)
[2020-12-03] MEDS: CALCIUM (CARBONATE) 500 MG TABLET PO SCH (09:07)
[2020-12-03] MEDS: INSULIN GLARGINE 100 UNIT/ML SUBCUT SCH (09:08)
[2020-12-03] MEDS: METOPROLOL SUCCINATE XL 25 MG TABLET PO SCH ×2 (09:09→10:08)
[2020-12-03] MEDS: CHOLECALCIFEROL 1,000 UNIT TABLET PO SCH (09:09)
[2020-12-03] MEDS: ZINC GLUCONATE 50 MG TABLET PO SCH (09:09)
[2020-12-03] MEDS: ASCORBIC ACID 500 MG TABLET PO SCH (09:09)
[2020-12-03] MEDS ORDERED: DESITIN 4OZ/NYSTATIN 15 GRAM MIXTURE PASTE TOP SCH (10:00)
[2020-12-03] MEDS: APIXABAN 5 MG TABLET PO SCH (10:07)
[2020-12-03] MEDS ORDERED: MAGNESIUM HYDROXIDE SUSP 30 ML UDCUP PO PRN (10:43)
[2020-12-03 13:05] VITALS: BP 103/71
== END 2020-12-03 16:12 | disposition swing bed (61) | DRG 177 ==
LOC: N.ED 12:14 → N.EDINP 15:11 → SUATTDRO 15:11 → N.2E 15:52
PROVIDERS: ADMIT Internal Medicine; ATTEND Internal Medicine